=== PATIENT | female | born 1995 | race Caucasian/White ===

== ENCOUNTER 2017-06-08 05:25 | Emergency (ER) | payer OTHER ==
[~2017-06-08] VITALS: Ht 160 cm; Wt 81.6 kg
[~2017-06-08 05:25] MED LIST: CIPR250T30 PO; IBUP-1007 PO; ONDA4TAB10 SL
[2017-06-08 06:08] LABS: BASO # 0.1 x10^3/uL (0.0-0.2); BASO % 1 % (0-3); EOS % 2 % (0-3); HEMATOCRIT 39.3 % (36.0-47.0); LYMPH # 3.2 x10^3/uL (1.0-4.8); LYMPH % 27 % (24-48); MEAN CORPUSCULAR HEMOGLOBIN 28 pg (25-35); MEAN CORPUSCULAR HGB CONC 33 g/dL (31-37); MEAN CORPUSCULAR VOLUME 84 fL (79-100); MONO % 8 % (0-9); NEUT % 63 % (31-73); PLATELET COUNT 268 x10^3/uL (140-400); RED BLOOD COUNT 4.67 x10^6/uL (3.50-5.40); WHITE BLOOD COUNT 11.9 x10^3/uL (4.0-11.0)
[2017-06-08 06:12] LABS: BILIRUBIN,URINE NEGATIVE (NEG); GLUCOSE,URINE NEGATIVE (NEG); NITRITE,URINE NEGATIVE (NEG); PROTEIN,URINE NEGATIVE (NEG-TRACE); UROBILINOGEN,URINE 0.2 mg/dL (0.2 mg/dL)
[2017-06-08 06:16] LABS: CREATININE 0.8 mg/dL (0.6-1.0); GFR 90.5; POTASSIUM 3.7 mmol/L (3.5-5.1)
[2017-06-08 06:17] LABS: SQUAMOUS EPITHELIAL CELL,UR MANY /LPF
[2017-06-08 06:18] LABS: BACTERIA,URINE MODERATE /HPF (0-FEW); RBC,URINE OCC /HPF (0-2)
[2017-06-08 06:22] LABS: ALBUMIN 4.1 g/dL (3.4-5.0); TOTAL BILIRUBIN 0.1 mg/dL (0.2-1.0); TOTAL PROTEIN 8.1 g/dL (6.4-8.2)
--- NOTE | 2017-06-08 08:55 | RAD ---
Pelvic ultrasound to include transabdominal and transvaginal imaging 06/08/2017 Clinical history: The patient had a positive test 2 weeks ago which is now negative. Vaginal spotting. Technique: Using the distended urinary bladder as a sonographic window, a real-time ultrasound examination of the pelvis was performed. Additionally in attempt to better evaluate the uterus and adnexa, a transvaginal ultrasound study was performed. Multiple images were obtained. Findings: The uterus is within normal limits in size and echogenicity. It measures 6.7 x 5.2 x 3.0 cm in longitudinal, transverse, and AP dimensions. The endometrial echo complex measures 9 mm in thickness which is within normal limits. No gestational sac is seen within the uterus. There is no sonographic evidence of retained products. Both ovaries are within normal limits in size and echogenicity. The right ovary measures 4.2 x 2.9 x 2.3 cm in size. The left ovary measures 3.7 x 2.9 x 1.9 cm in size. Small amount free fluid is seen adjacent to the left ovary. No adnexal mass is seen. Impression: Small amount of free fluid is seen adjacent to the left ovary. Otherwise negative study.
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
[2017-06-08 09:42] VITALS: BP 128/79
== END 2017-06-08 09:43 | disposition home or self-care (01) ==
LOC: ER 05:25
DX: R10.30 Lower abdominal pain, unspecified (principal); R11.10 Vomiting, unspecified; N92.6 Irregular menstruation, unspecified; F12.10 Cannabis abuse, uncomplicated; F31.9 Bipolar disorder, unspecified; F41.9 Anxiety disorder, unspecified; Z98.890 Other specified postprocedural states; Z88.5 Allergy status to narcotic agent
CPT/HCPCS: 36415; 76830; 76856; 80053; 81001; 81025; 83690; 84702; 85025; 87086; 99285-25